=== PATIENT | female | born 1985 | race Hispanic/Latino ===

== ENCOUNTER 2017-07-29 16:02 | Emergency (ER) | payer BC ==
[2017-07-29 16:41] VITALS: BMI 27.4
[2017-07-29 16:42] VITALS: RESP 18; O2SAT 100
[2017-07-29] MEDS ORDERED: DiphenhydrAMINE 50 mg/ml Inj IM STA (17:03)
--- NOTE | 2017-07-29 17:12 | ED PDOC ---
Arrival/HPI - General Chief Complaint: Abnormal Skin Integrity Time Seen by Provider: 07/29/17 16:11 Historian: Patient - History of Present Illness Narrative History of Present Illness (Text): 07/29/17 17:08 31 y/o female, no significant pmh, nkda, c/o whole body itching rash x 3 days after using a new scrub body brush 4 days ago. Itching rash, no pain, took benadryl with last dose about 8 hours ago with relief but keep returning back, no fever or chills ,no throat or ear pain, no night sweat, no numbness or tingling, no other medical or psychological complaints. Past Medical History - Provider Review Nursing Documentation Reviewed: Yes - Cardiac Hx Cardiac Disorders: No - Pulmonary Hx Respiratory Disorders: No - Neurological Hx Neurological Disorder: No - HEENT Hx HEENT Disorder: No - Renal Hx Renal Disorder: No - Endocrine/Metabolic Hx Endocrine Disorders: No - Hematological/Oncological Hx Blood Disorders: No - Integumentary Hx Dermatological Disorder: No - Musculoskeletal/Rheumatological Hx Musculoskeletal Disorders: No - Gastrointestinal Hx Gastrointestinal Disorders: Yes - Psychiatric Hx Substance Use: No - Anesthesia Hx Anesthesia: Yes Family/Social History - Physician Review Nursing Documentation Reviewed: Yes Family/Social History: Unknown Family HX Smoking Status: e-cig Hx Alcohol Use: Yes Frequency of alcohol use: Socially Hx Substance Use: No Allergies/Home Meds Allergies/Adverse Reactions: Allergies No Known Allergies Allergy (Verified 07/29/17 16:41) Review of Systems - Review of Systems Constitutional: absent: Fatigue, Fevers Eyes: absent: Vision Changes ENT: absent: Hearing Changes Respiratory: absent: SOB, Cough Cardiovascular: absent: Chest Pain Gastrointestinal: absent: Abdominal Pain, Diarrhea, Nausea, Vomiting Skin: Rash, Pruritis, Skin Lesions. absent: Laceration, Abscess, Ulcer, Cellulitis Neurological: absent: Headache, Dizziness Psychiatric: absent: Anxiety, Depression, Suicidal Ideation Physical Exam Vital Signs Reviewed: Yes Vital Signs Temp Pulse Resp BP Pulse Ox 07/29/17 16:41 98.3 F 92 H 18 133/94 H 100 Temperature: Afebrile Blood Pressure: Hypertensive Pulse: Regular Respiratory Rate: Normal Appearance: Positive for: Well-Appearing, Non-Toxic, Comfortable Pain Distress: None Mental Status: Positive for: Alert and Oriented X 3 - Systems Exam Head: Present: Atraumatic, Normocephalic Pupils: Present: PERRL Extroacular Muscles: Present: EOMI Conjunctiva: Present: Normal Mouth: Present: Moist Mucous Membranes Neck: Present: Normal Range of Motion Respiratory/Chest: Present: Clear to Auscultation, Good Air Exchange. No: Respiratory Distress, Accessory Muscle Use Cardiovascular: Present: Regular Rate and Rhythm, Normal S1, S2. No: Murmurs Abdomen: No: Tenderness, Distention, Peritoneal Signs Back: Present: Normal Inspection Upper Extremity: Present: Normal Inspection. No: Cyanosis, Edema Lower Extremity: Present: Normal Inspection. No: Edema Neurological: Present: GCS=15, CN II-XII Intact, Speech Normal, Motor Func Grossly Intact, Gait Normal, Memory Normal Skin: Present: Warm, Dry, Rashes (scattered papule rash noted on the bilateral upper and lower extremities including the body/trunk/back, no bullseye or target signs, no cellulitis or streaking. ), Normal Color Psychiatric: Present: Alert, Oriented x 3, Normal Insight, Normal Concentration Medical Decision Making ED Course and Treatment: 07/29/17 17:11 -Benadryl/pepcid/prednisone -Observe and reassess 07/29/17 17:45 - is negative. -Pt. feels well and better, request to be discharged. -Discharge home with claritin, pepcid, prednisone, keep the skin cool and dry, avoid contact with possible allergen, avoid sun tanning or swimming until symptoms resolved, return to the ER for any new or worsening signs or symptoms. - Medication Orders Current Medication Orders: Discontinued Medications Diphenhydramine HCl (Benadryl) 50 mg IM STAT STA Stop: 07/29/17 17:04 Last Admin: 07/29/17 17:12 Dose: 50 mg IM Administration Charges Document 07/29/17 17:12 LA (Rec: 07/29/17 17:12 LA [id number]) Charges for Administration # of IM Administrations 1 Famotidine (Pepcid) 20 mg PO STAT STA Stop: 07/29/17 17:04 Last Admin: 07/29/17 17:11 Dose: 20 mg Prednisone (Prednisone Tab) 60 mg PO STAT ONE Stop: 07/29/17 17:04 Last Admin: 07/29/17 17:12 Dose: 60 mg - PA / [employer]OCIATE / Resident Statement MD/DO has reviewed & agrees with the documentation as recorded. Disposition/Present on Arrival - Present on Arrival Any Indicators Present on Arrival: No History of DVT/PE: No History of Uncontrolled Diabetes: No Urinary Catheter: No History of Decub. Ulcer: No History Surgical Site Infection Following: None - Disposition Have Diagnosis and Disposition been Completed?: Yes Diagnosis: Dermatitis Disposition: HOME/ ROUTINE Disposition Time: 17:13 Patient Plan: Discharge Patient Problems: Current Active Problems Problem Status Onset Dermatitis Acute Condition: GOOD Additional Instructions: -Discharge home with claritin, pepcid, prednisone, keep the skin cool and dry, avoid contact with possible allergen, avoid sun tanning or swimming until symptoms resolved, return to the ER for any new or worsening signs or symptoms. Prescriptions: Famotidine [Pepcid] 20 mg PO BID #20 tab Loratadine [Claritin] 10 mg PO DAILY PRN #14 tab PRN Reason: Other Prednisone 50 mg PO DAILY #4 tab Referrals: Wendy Burrell MD [Primary Care Provider] - Follow up with primary Jefry Kohler MD [Staff Provider] - Follow up with primary Forms: WORK NOTE
[2017-07-29 17:49] VITALS: BP 138/76; PULSE 77; TEMP 98.2
== END 2017-07-29 17:51 | disposition home or self-care (01) ==
LOC: MERGE 16:02 → ED 16:02
DX: L30.9 Dermatitis, unspecified (principal)
CPT/HCPCS: 96372; 99283; J1200